=== PATIENT | female | born 1985 | race Caucasian/White ===

== ENCOUNTER 2018-11-20 17:04 | Emergency (ER) | payer MEDICAID ==
[~2018-11-20] VITALS: Ht 175.3 cm; Wt 63.6 kg
--- NOTE | 2018-11-20 18:05 | NUR ---
Patient brought over directly from Triage. Presents as disheveled, delusional and paranoid. Attempted to leave the ER upon admisssion to Bed 21. Security called and stood by while patient was changed into hospital gowns. Patient rambling incoherently. Calling out to multiple names of women. Screaming at the top of her lungs. States she is . Lab work and urine obtained. Dr. Rich informed of patient's statement she is . IM medication held until result of urine test.
[2018-11-20] MEDS: haloperidol lactate 5mg/ml inj IM ONE ×2 (18:32→19:09)
[2018-11-20] MEDS: LORazepam 2 mg/ml vial IM ONE ×2 (18:32→19:09)
[2018-11-20 18:42] LABS: BASOPHILS % (AUTO) 0.2 % (0-1); EOSINOPHILS # (AUTO) 0.1 X10'3 (0-0.9); EOSINOPHILS % (AUTO) 1.3 % (0-6); HEMATOCRIT 34.4 % (35.0-45.0); HEMOGLOBIN 11.9 g/dl (12.0-16.0); LYMPHOCYTES # (AUTO) 2.6 X10'3 (1.1-4.8); LYMPHOCYTES % (AUTO) 23.8 % (21-51); MEAN CORPUSCULAR HEMOGLOBIN 32.7 PG (27.0-31.0); MEAN CORPUSCULAR HGB CONC 34.7 g/dL (33.0-36.5); MEAN CORPUSCULAR VOLUME 94.3 FL (78-98); MEAN PLATELET VOLUME 7.3 FL (7.4-10.4); MONOCYTES # (AUTO) 0.6 X10'3 (0-0.9); MONOCYTES % (AUTO) 5.6 % (2-12); NEUTROPHILS # (AUTO) 7.7 X10'3 (1.8-7.7); NEUTROPHILS % (AUTO) 69.1 % (42-75); PLATELET COUNT 319 X10'3 (140-440); RED BLOOD COUNT 3.64 X10'6 (4.20-5.60); RED CELL DISTRIBUTION WIDTH 12.2 % (11.5-14.5); WHITE BLOOD COUNT 11.1 X10'3 (4.5-11.0)
[2018-11-20 18:53] LABS: URINE HCG POSITIVE (NEG)
[2018-11-20 18:57] LABS: CLARITY,URINE SLIGHTLY CLOUDY (Clear); COLOR,URINE YELLOW (Yellow); GLUCOSE, URINE NEGATIVE (Neg); KETONES,URINE TRACE mg/dl (Neg); LEUKOCYTE ESTERASE ,URINE SMALL (Neg); NITRITES, URINE NEGATIVE (Neg); OCCULT BLOOD,URINE NEGATIVE (Neg); PH,URINE 6.5 (4.8-8.0); PROTEIN,URINE NEGATIVE (Neg); UROBILINOGEN,URINE 0.2 E.U/dL (0.2-1.0)
[2018-11-20 18:57] LABS: ALANINE AMINOTRANSFERASE 40 U/L (12-78); ALBUMIN 2.5 G/DL (3.4-5.0); ALBUMIN/GLOBULIN RATIO 0.5 (1.1-1.5); ALKALINE PHOSPHATASE 94 IU/L (46-116); ANION GAP 11 (8-16); ASPARTATE AMINO TRANSFERASE 29 U/L (10-37); BILIRUBIN,TOTAL 0.3 MG/DL (0.1-1.0); BLOOD UREA NITROGEN 6 MG/DL (7-18); BUN/CREATININE RATIO 11.8 (6.6-38.0); CALCIUM 9.4 MG/DL (8.5-10.1); CHLORIDE 103 MMOL/L (99-107); CREATININE 0.51 MG/DL (0.40-0.90); GLUCOSE 107 MG/DL (70-104); POTASSIUM 3.5 MMOL/L (3.5-5.1); SODIUM 139 MMOL/L (135-145); TOTAL CARBON DIOXIDE 24.7 MMOL/L (24-32); TOTAL PROTEIN 7.1 G/DL (6.4-8.2); eGFR > 90 ML/MIN
[2018-11-20 19:01] LABS: UA COLLECTION TYPE CLN CATCH MIDSTREAM
[2018-11-20 19:04] LABS: COARSE GRANULAR CAST 0-3 /LPF (NEGATIVE); MUCUS STRANDS MANY /LPF (Neg); SQUAMOUS EPITHELIAL CELL,UR MANY /LPF (FEW)
[2018-11-20 19:05] LABS: BACTERIA,URINE 1+ /HPF (Neg); RBC,URINE 0-2 /HPF (0-2); URINE AMPHETAMINE SCREEN POSITIVE (Neg); URINE BARBITUATE SCREEN NEGATIVE (Neg); URINE BENZODIAZEPINES SCREEN NEGATIVE (Neg); URINE CANNABINOID SCREEN POSITIVE (Neg); URINE COCAINE SCREEN NEGATIVE (Neg); URINE METHADONE SCREEN NEGATIVE (Neg); URINE OPIATE SCREEN POSITIVE (Neg); URINE PHENCYCLIDINE SCREEN NEGATIVE (Neg)
[2018-11-20] MEDS ORDERED: haloperidol lactate 5mg/ml inj IM ONE (19:05)
[2018-11-20 19:10] LABS: ETHANOL < 0.010 GM/DL (0.0-0.010)
[2018-11-20 19:48] LABS: BETA HCG,QUANTITATIVE 72576 mIU/ml
[2018-11-21] MEDS: nitrofuran/nitrofuran macrocrysal 100 MG capsule PO SCH ×2 (09:14→19:57)
--- NOTE | 2018-11-21 09:33 | NUR ---
TELEPSYCH INITIATED, CART IN PLACE
--- NOTE | 2018-11-21 09:40 | NUR ---
[facility] CALL FROM [employer] MD, SHE WILL TALK WITH PT AND CALL US BACK
--- NOTE | 2018-11-21 10:13 | NUR ---
PT VERY AGITIATED DURING TELEPSYCH, TALKING ABOUT [employer], AND ALL OVER THE PLACE WITH THE SUBJECT MATTER, THE MORE THE MD TALKED TO HER THE MORE AGITATED SHE BECAME, SHE IS NOW RESTING ON HER LEFT SIDE, NO S/S OF AGITATION, REGULAR BREATHING
--- NOTE | 2018-11-21 10:47 | NUR ---
Ester from [facility] called requests proof of how far along pt is in her , for inpatient placement, will fax
--- NOTE | 2018-11-21 10:57 | NUR ---
u/s report not back yet to fax to [facility], will send when available
--- NOTE | 2018-11-21 10:59 | NUR ---
pt is in bed laying on right side, eyes closed, equal regular breathing, no s/s of distress observed
--- NOTE | 2018-11-21 11:23 | NUR ---
patient has an appointment at [facility] clinic on [address] [phone], we will need to send them U/S record when avail, lab results, tox screen, face sheet, and any OB records
[2018-11-21] MEDS: PNV NO.63/IRON,CARBONYL/FA/DHA 1 EACH CAPSULE PO SCH (12:00)
--- NOTE | 2018-11-21 12:12 | NUR ---
pt is supine in bed, eyes closed, appears restful, even, unlabored breathing, no s/s of distress
--- NOTE | 2018-11-21 13:05 | NUR ---
pt is in bed, on left side, no s/s of distress, eyes closed, calm
--- NOTE | 2018-11-21 14:17 | NUR ---
pt in bed on right side, was just calmly speaking to admitting, no s/s of agitation
--- NOTE | 2018-11-21 15:40 | NUR ---
pt is in bed supine, eyes closed, no s/s of distress observed, regular, unlabored breathing observed
--- NOTE | 2018-11-21 16:56 | NUR ---
pt is in bed, supine, eyes closed, calm, no s/s of distress
--- NOTE | 2018-11-21 18:00 | NUR ---
pt is in bed supine eyes closed, calm, sleeping, regular, even breathing
--- NOTE | 2018-11-21 18:55 | NUR ---
pt is in bed, supine, she did not wake up for dinner, eyes closed, regular, unlabored breathing, no s/s of distress
--- NOTE | 2018-11-21 23:06 | NUR ---
Patient is sleeping comfortably in one her left side with no distress.
--- NOTE | 2018-11-22 00:32 | NUR ---
Patient continues to sleep.
--- NOTE | 2018-11-22 02:02 | NUR ---
No change, patient continues to sleep.
--- NOTE | 2018-11-22 03:22 | NUR ---
Patient sleeping on her left side. Respirations are even and unlabored.
--- NOTE | 2018-11-22 04:30 | NUR ---
Patient continues to sleep.
[2018-11-22 05:48] VITALS: BP 112/67
--- NOTE | 2018-11-22 07:09 | NUR ---
PT RESTING EYES CLOSED RR EQUAL AND UNLABORED
[2018-11-22] MEDS: nitrofuran/nitrofuran macrocrysal 100 MG capsule PO SCH (08:16)
[2018-11-22] MEDS: PNV NO.63/IRON,CARBONYL/FA/DHA 1 EACH CAPSULE PO SCH (08:17)
--- NOTE | 2018-11-22 08:27 | NUR ---
PT GIVEN AM MEDS AND BREAKFAST. PT RESTING ON LEFT SIDE EYES CLOSED RR EQUAL AND UNLABORED
--- NOTE | 2018-11-22 09:46 | NUR ---
PT RESTING ON BACK EYES CLOSED RR EQUAL AND UNLABORED
--- NOTE | 2018-11-22 10:32 | NUR ---
PT RESTING EYES CLOSED RR EQUAL AND UNLABORED
--- NOTE | 2018-11-22 11:44 | NUR ---
PT CONTINUES TO RESTING ON BACK RR EQUAL AND UNLABORED
--- NOTE | 2018-11-22 12:59 | NUR ---
PT RESTING ON RIGHT SIDE
--- NOTE | 2018-11-22 15:28 | NUR ---
AWAITING [facility] TO TRANSPORT PT UPSTAIRS
--- NOTE | 2018-11-22 15:59 | NUR ---
STAFF FROM [facility] HERE TO TAKE ANOTHER PT UP AND STATES THEY WILL BE BACK IN APROX 45MIN TO [id number]
[2018-11-22] MEDS ORDERED: BUPR-94 PO (17:44)
[2018-11-22] MEDS ORDERED: DIVA-81 PO (17:45)
== END 2018-11-22 16:47 ==
LOC: EDBD 17:06 → ER 17:06
DX: O99.342 Other mental disorders complicating pregnancy, second trimester (principal); F29 Unspecified psychosis not due to a substance or known physiological condition; F15.90 Other stimulant use, unspecified, uncomplicated; Z56.0 Unemployment, unspecified; Z3A.26 26 weeks gestation of pregnancy
CPT/HCPCS: 36415; 80053; 80305; 80320; 81001; 81025; 84443; 84702; 85025; 96372; 99285; J1630; J2060

== ENCOUNTER 2018-11-22 13:15 | Inpatient (IN) | payer MEDICAID | END 2019-01-09 08:56 | LOC: ADULT MH 13:15 | DX: F20.9 Schizophrenia, unspecified (principal); F11.10 Opioid abuse, uncomplicated; F12.10 Cannabis abuse, uncomplicated; F15.10 Other stimulant abuse, uncomplicated; O09.72 Supervision of high risk pregnancy due to social problems, second trimester; N39.0 Urinary tract infection, site not specified ==